=== PATIENT | female | born 1960 | race Caucasian/White ===

== ENCOUNTER 2022-07-05 04:23 | Day surgery (SDC) | payer BC ==
[2022-06-28 12:35] VITALS: BMI 26.6
[2022-07-05] MEDS ORDERED: BUPIVACAINE HCL/PF 0.5% (5MG/ML) 10 ML VIAL ONE (12:33)
[2022-07-05] MEDS ORDERED: LIDOCAINE HCL 1%, 10 MG/ML (10ML VIAL) MDV ONE (12:33)
[2022-07-05] MEDS ORDERED: MIDAZOLAM HCL 2 MG/2 ML SINGLE DOSE VIAL ONE ×2 (12:51→15:53)
[2022-07-05] MEDS ORDERED: LIDOCAINE HCL/PF 2% SDV 5ML VIAL ONE (12:51)
[2022-07-05] MEDS ORDERED: ceFAZolin SODIUM 1 GM VIAL ONE (12:51)
[2022-07-05] MEDS ORDERED: PROPOFOL 20 ML ONE ×2 (12:51→16:35)
[2022-07-05] MEDS ORDERED: ONDANSETRON 4 MG/2 ML VIAL IVPUSH PRN (13:01)
[2022-07-05] MEDS ORDERED: oxyCODONE HCL 5 MG TABLET PO PRN (13:01)
[2022-07-05] MEDS ORDERED: IBUPROFEN 800 MG/8 ML IJ IVPB ONE (13:01)
[2022-07-05] MEDS ORDERED: ACETAMINOPHEN 1000 MG/100 ML BAG IVPB ONE ×2 (13:02→17:35)
[2022-07-05] MEDS ORDERED: LACTATED RINGERS SOLUTION 1,000 ML IV SCH (13:15)
[2022-07-05] MEDS ORDERED: LIDOCAINE HCL 1%, 10 MG/ML (20ML VIAL) NR ONE (13:26)
[2022-07-05] MEDS ORDERED: ceFAZolin SODIUM 1 GM VIAL IVPB ONE (13:26)
[2022-07-05] MEDS ORDERED: ePHEDrine SULFATE 50 MG/1 ML AMPULE ONE (13:54)
[2022-07-05] MEDS ORDERED: DEXAMETHASONE SOD PHOSPHATE 4 MG/1 ML VIAL ONE (14:09)
[2022-07-05] MEDS ORDERED: ONDANSETRON 4 MG/2 ML VIAL ONE (14:09)
[2022-07-05] MEDS ORDERED: BUPIVACAINE HCL/PF 0.25% (2.5MG/ML) 10 ML VIAL IJ ONE ×2 (16:44)
[2022-07-05] MEDS ORDERED: BACITRACIN ZINC 15 GM TUBE TOPICAL OINTMENT ONE (16:50)
[2022-07-05] MEDS ORDERED: ACETAMINOPHEN INJECTION 100 ML IVPB ONE (17:32)
[2022-07-05 18:31] VITALS: RESP 20; TEMP 97.9
[2022-07-05 18:49] VITALS: BP 130/64; PULSE 68
== END 2022-07-05 18:45 | disposition home or self-care (01) ==
LOC: JASU-SURG 04:23
PROVIDERS: ATTEND Podiatrist Foot Surgery
PROC: 0QSN04Z Reposition Right Metatarsal with Internal Fixation Device, Open Approach (ICD-10-PCS; principal; 2022-07-05 13:00)
DX: M21.611 Bunion of right foot (principal)
CPT/HCPCS: 28297; 28310; L8699; 73630-TC-RT-FY; 88304-TC; 88311-TC; 94760; C1713

== ENCOUNTER 2023-01-03 04:30 | Day surgery (SDC) | payer BC ==
[2023-01-01 14:05] VITALS: BMI 26.6
[~2023-01-03 04:30] MED LIST: BUPIVACAINE HCL/PF 0.5% (5MG/ML) 10 ML VIAL IJ ONE; LIDOCAINE HCL 1%, 10 MG/ML (20ML VIAL) NR ONE
[2023-01-03] MEDS ORDERED: PROPOFOL 40 ML ONE (07:20)
[2023-01-03] MEDS ORDERED: MIDAZOLAM HCL 2 MG/2 ML SINGLE DOSE VIAL ONE (07:20)
[2023-01-03] MEDS ORDERED: BUPIVACAINE HCL/PF 0.5% (5MG/ML) 10 ML VIAL ONE (07:23)
[2023-01-03] MEDS ORDERED: LIDOCAINE HCL 1%, 10 MG/ML (20ML VIAL) ONE (07:23)
[2023-01-03] MEDS ORDERED: ceFAZolin SODIUM 1 GM VIAL ONE (07:25)
[2023-01-03] MEDS ORDERED: ONDANSETRON 4 MG/2 ML VIAL ONE ×2 (07:25→14:46)
[2023-01-03] MEDS ORDERED: KETOROLAC TROMETHAMINE 30 MG/1 ML VIAL ONE (07:25)
[2023-01-03] MEDS ORDERED: DEXAMETHASONE SOD PHOSPHATE 4 MG/1 ML VIAL ONE (07:25)
[2023-01-03] MEDS ORDERED: LIDOCAINE HCL/PF 2% SDV 5ML VIAL ONE (07:25)
[2023-01-03] MEDS ORDERED: SODIUM CHLORIDE 0.9% P/F 10 ML VIAL IJ ONE ×2 (07:25→10:14)
[2023-01-03] MEDS ORDERED: ROCURONIUM BROMIDE 50 MG/5 ML SYRINGE ONE ×3 (08:16→11:41)
[2023-01-03] MEDS ORDERED: ACETAMINOPHEN INJECTION 100 ML IVPB ONE (08:32)
[2023-01-03] MEDS ORDERED: ALBUTEROL SO4 HFA INHALER IH ONE (08:33)
[2023-01-03] MEDS ORDERED: ceFAZolin SODIUM 1 GM VIAL IVPB ONE (08:48)
[2023-01-03] MEDS ORDERED: LIDOCAINE HCL 1%, 10 MG/ML (20ML VIAL) NR ONE (08:56)
[2023-01-03] MEDS ORDERED: SUGAMMADEX SODIUM 200 MG/2 ML VIAL ONE (09:35)
[2023-01-03] MEDS ORDERED: HYDROmorphone HCl 2 MG/ML VIAL ONE (10:14)
[2023-01-03] MEDS ORDERED: oxyCODONE HCL 5 MG TABLET PO PRN ×2 (12:53)
[2023-01-03] MEDS ORDERED: LACTATED RINGERS SOLUTION 1,000 ML IV SCH (13:00)
[2023-01-03] MEDS ORDERED: ONDANSETRON 4 MG/2 ML VIAL IVPUSH ONE (14:46)
[2023-01-03 15:48] VITALS: RESP 20; TEMP 97.5
[2023-01-03 16:29] VITALS: BP 124/68; PULSE 70
== END 2023-01-03 16:15 | disposition home or self-care (01) ==
LOC: JASU-SURG 04:30
PROVIDERS: ATTEND Podiatrist Foot Surgery
PROC: 0QSP04Z Reposition Left Metatarsal with Internal Fixation Device, Open Approach (ICD-10-PCS; principal; 2023-01-03 07:30)
DX: Q66.222 Congenital metatarsus adductus, left foot (principal)
CPT/HCPCS: 28297; C1713; 76000-TC-FY; 88304-TC; 88311-TC; 94760

== ENCOUNTER 2023-05-23 04:01 | Day surgery (SDC) | payer BC ==
[2023-05-16 17:47] VITALS: BMI 28.1
[2023-05-23] MEDS ORDERED: LIDOCAINE HCL 1%, 10 MG/ML (20ML VIAL) ONE (12:42)
[2023-05-23] MEDS ORDERED: BUPIVACAINE HCL/PF 0.5% (5MG/ML) 10 ML VIAL ONE (12:45)
[2023-05-23] MEDS ORDERED: MIDAZOLAM HCL 2 MG/2 ML SINGLE DOSE VIAL ONE (13:08)
[2023-05-23] MEDS ORDERED: KETOROLAC TROMETHAMINE 30 MG/1 ML VIAL ONE (13:08)
[2023-05-23] MEDS ORDERED: ceFAZolin SODIUM 1 GM VIAL ONE (13:08)
[2023-05-23] MEDS ORDERED: ONDANSETRON 4 MG/2 ML VIAL ONE (13:08)
[2023-05-23] MEDS ORDERED: DEXAMETHASONE SOD PHOSPHATE 4 MG/1 ML VIAL ONE (13:08)
[2023-05-23] MEDS ORDERED: LIDOCAINE HCL/PF 2% SDV 5ML VIAL ONE (13:08)
[2023-05-23] MEDS ORDERED: PROPOFOL 20 ML ONE (13:08)
[2023-05-23] MEDS ORDERED: PROMETHAZINE HCL 25 MG/1 ML VIAL IVPB PRN (13:19)
[2023-05-23] MEDS ORDERED: oxyCODONE HCL 5 MG TABLET PO PRN ×2 (13:19)
[2023-05-23] MEDS ORDERED: ONDANSETRON 4 MG/2 ML VIAL IVPUSH PRN (13:19)
[2023-05-23] MEDS: ceFAZolin SODIUM 1 GM VIAL IVPB ONE (13:28)
[2023-05-23] MEDS ORDERED: LACTATED RINGERS SOLUTION 1,000 ML IV SCH (13:30)
[2023-05-23] MEDS: LIDOCAINE HCL 1%, 10 MG/ML (20ML VIAL) INF ONE (13:33)
[2023-05-23] MEDS: BUPIVACAINE HCL/PF 0.5% (5 MG/ML) 30 ML VIAL IJ ONE (15:15)
[2023-05-23] MEDS: ACETAMINOPHEN 1000 MG/100 ML BAG IVPB PRN (15:45)
[2023-05-23] MEDS ORDERED: ACETAMINOPHEN INJECTION 100 ML IVPB ONE (15:58)
[2023-05-23 17:03] VITALS: RESP 20; TEMP 97.1
[2023-05-23 18:41] VITALS: BP 132/71; PULSE 62
== END 2023-05-23 18:14 | disposition home or self-care (01) ==
LOC: JASU-SURG 04:01
PROVIDERS: ATTEND Podiatrist Foot Surgery
PROC: 0SGM04Z Fusion of Right Metatarsal-Phalangeal Joint with Internal Fixation Device, Open Approach (ICD-10-PCS; principal; 2023-05-23 13:00)
DX: M21.611 Bunion of right foot (principal); M20.21 Hallux rigidus, right foot
CPT/HCPCS: 28750; C1713; 73630-TC-RT-FY; 76000-TC-FY; 88305-TC; 88311-TC; 94760; C1889; J0131